=== PATIENT | female | born 1985 | race American Indian/Alaskan Native ===

== ENCOUNTER 2021-12-12 14:21 | Inpatient (IN) | payer SELFPAY ==
[2021-12-12] MEDS ORDERED: MAGNESIUM SULFATE 2 GM/50 ML BAG IV ONE (15:20)
[2021-12-12] MEDS ORDERED: ALBUTEROL 2.5 MG/3 ML NEBU IH ONE (15:20)
[2021-12-12] MEDS ORDERED: IPRATROPIUM 0.02% NEBU 2.5 ML IH ONE (15:20)
[2021-12-12] MEDS ORDERED: hydrALAZINE 20 MG/1 ML INJ IV STA (15:22)
--- NOTE | 2021-12-12 15:22 | Emergency Department Report ---
ED General Adult HPI - General Chief complaint: Dyspnea/Respdistress Stated complaint: SOB PUI?: Yes Time Seen by Provider: 12/12/21 15:16 Source: patient, EMS ( EMS documentation not available at time of chart dictation ), RN notes reviewed Mode of arrival: Stretcher Limitations: No Limitations, Physical Limitation - History of Present Illness Initial comments: The patient was evaluated in the emergency department for symptoms described in the history of present illness. He/she was evaluated in the context of the global COVID-19 pandemic, which necessitated consideration that the patient might be at risk for infection with the virus that causes COVID-19. Institutional protocols and algorithms that pertain to the evaluation of patients at risk for COVID-19 are in a state of rapid change based on information released by regulatory bodies including the CDC and federal and state organizations. These policies and algorithms were followed during the patient's care in the emergency department. Please note that these policies, procedures and recommendations changed on a rapid basis. This is a 36-year-old female who is a tobacco and marijuana smoker, with a history of hypertension, bronchitis and COPD, who is not on home oxygen, who presents to the department today with a complaint of cough, wheezing, shortness of breath, legs and fatigue. Has never been intubated. Admitted to [facility] 3 weeks ago for similar symptoms. No loss of taste or smell. Asking to eat. As per nursing documentation, received magnesium, Decadron, epinephrine, and 3 breathing treatments. Denies the possibility of . The patient reports that she is not COVID-19 vaccinated. The patient reports loss of taste and smell for 2 to 3 days -: Gradual, days(s) Consistency: constant Improves with: medication, rest Worsens with: movement - Related Data Allergies Allergy/AdvReac Type Severity Reaction Status Date / Time Sulfa (Sulfonamide Allergy Anaphylaxis Verified 12/12/21 14:37 Antibiotics) ED Review of Systems ROS: Stated complaint: SOB Other details as noted in HPI Constitutional: malaise, weakness. denies: fever ENT: congestion Respiratory: cough, shortness of breath, SOB with exertion, SOB at rest, wheezing Cardiovascular: denies: syncope Gastrointestinal: denies: abdominal pain Musculoskeletal: back pain, arthralgia, myalgia Neurological: weakness Psychiatric: anxiety ED Past Medical Hx - Past Medical History Previous Medical History?: Yes Hx COPD: Yes - Social History Smoking Status: Current Every Day Smoker Substance Use Type: Alcohol, Marijuana ED Physical Exam - General Limitations: Physical Limitation General appearance: alert, anxious, in distress - Head Head exam: Present: atraumatic, normocephalic - Eye Eye exam: Present: normal appearance, EOMI. Absent: nystagmus - ENT ENT exam: Present: normal exam, normal orophraynx, mucous membranes moist, normal external ear exam - Neck Neck exam: Present: normal inspection, full ROM. Absent: tenderness, meningismus - Respiratory Respiratory exam: Present: respiratory distress, wheezes, rhonchi, accessory muscle use. Absent: stridor - Cardiovascular Cardiovascular Exam: Present: normal rhythm, tachycardia, normal heart sounds. Absent: bradycardia, irregular rhythm, systolic murmur, diastolic murmur, rubs, gallop - GI/Abdominal GI/Abdominal exam: Present: soft. Absent: distended, tenderness, guarding, rebound, rigid, pulsatile mass - Extremities Exam Extremities exam: Present: normal inspection, full ROM, other (2+ pulses noted in the bilateral upper and lower extremities. There is no palpable cord. negative Homans sign. Muscular compartments are soft. The pelvis is stable.). Absent: calf tenderness - Back Exam Back exam: Present: normal inspection. Absent: tenderness, CVA tenderness (R), CVA tenderness (L), paraspinal tenderness, vertebral tenderness - Neurological Exam Neurological exam: Present: alert, other (There is no facial droop. The tongue is midline. EOMI. 5/5 strength in 4 extremities). Absent: motor sensory deficit - Psychiatric Psychiatric exam: Present: anxious - Skin Skin exam: Present: warm, dry, intact, normal color. Absent: rash ED Course Vital Signs 12/12/21 12/12/21 12/12/21 14:22 14:42 15:20 Temperature 98.2 F Pulse Rate 114 H 111 H Pulse Rate [ Bilateral] Respiratory 22 27 H Rate Respiratory Rate [Bilateral ] Blood Pressure 185/115 Blood Pressure 180/100 186/125 [Left] O2 Sat by Pulse 97 94 Oximetry 12/12/21 12/12/21 15:27 16:10 Temperature 98.3 F Pulse Rate 101 H Pulse Rate [ 108 H Bilateral] Respiratory 22 Rate Respiratory 24 Rate [Bilateral ] Blood Pressure Blood Pressure 167/118 [Left] O2 Sat by Pulse 94 100 Oximetry - Reevaluation(s) Reevaluation #1: 12/12/21 16:51 Differential diagnosis, include but not limited to: Bronchitis, COVID-19, asthma, reactive airways disease, hypertensive urgency Assessment and plan: 36-year-old female with acute hypoxic respiratory failure, known history of COPD, not on home oxygen, desaturating to 83% on room air, with cough, wheezing, rhonchi, shortness of breath, suspicious for COPD/bronchitis. Denies loss of taste and smell. Protecting airway not stridulous. Hemodynamically stable. Start albuterol, and Atrovent, additional magnesium will be ordered. Patient has already received steroids, and epinephrine. X-ray chest pending, EKG appreciated, laboratory studies pending. Anticipate admission to the medical service for acute hypoxic respiratory failure, likely secondary to reactive airway disease/bronchitis/COPD 12/12/21 17:52 Patient reassessed. Laboratory studies reviewed and appreciated. Chest x-ray reviewed and appreciated. Given acute hypoxic respiratory failure, bilateral pneumonia, high suspicion for COVID, admit for supportive care. Patient is agreeable to admission hospitalization. Leukocytosis is appreciated. Uncertain if stress reaction, secondary to steroids, or secondary to COVID and/or bacterial infection. Given propensity for COVID patients to develop acute respiratory distress sy ndrome, we will withhold 30 cc/kg bolus of IV fluids, in spite of patient being positive for systemic inflammatory response syndrome, without evidence of septic shock. Awaiting callback from hospital physician to arrange admission 12/12/21 18:16 Dr. Chan to admit patient to the medical service. ED Medical Decision Making - Lab Data Result diagrams: 12/12/21 15:55 12/12/21 15:55 Vital Signs 12/12/21 12/12/21 12/12/21 14:22 14:42 15:20 Temperature 98.2 F Pulse Rate 114 H 111 H Respiratory 22 27 H Rate Blood Pressure 185/115 Blood Pressure 180/100 186/125 [Left] O2 Sat by Pulse 97 94 Oximetry 12/12/21 16:10 Temperature 98.3 F Pulse Rate 101 H Respiratory 22 Rate Blood Pressure Blood Pressure 167/118 [Left] O2 Sat by Pulse 100 Oximetry Lab Results 12/12/21 12/12/21 12/12/21 Range/Units 15:55 15:55 15:55 WBC 22.3 H (4.5-11.0) K/mm3 RBC 4.95 (3.65-5.03) M/mm3 Hgb 13.5 (10.1-14.3) gm/dl Hct 42.2 (30.3-42.9) % MCV 85 (79-97) fl MCH 27 L (28-32) pg MCHC 32 (30-34) % RDW 15.3 H (13.2-15.2) % Plt Count 364 (140-440) K/mm3 Seg Neutrophils % Switch Coupler PT (12.2-14.9) Sec. INR (0.87-1.13) APTT (24.2-36.6) Sec. Sodium 139 (137-145) mmol/L Potassium 3.6 (3.6-5.0) mmol/L Chloride 99.5 (98-107) mmol/L Carbon Dioxide 25 (22-30) mmol/L Anion Gap 18 mmol/L BUN 9 (7-17) mg/dL Creatinine 0.6 (0.6-1.2) mg/dL Estimated GFR > 60 ml/min BUN/Creatinine Ratio 15 % Glucose 105 H (65-100) mg/dL Lactic Acid 1.40 (0.7-2.0) mmol/L Calcium 9.1 (8.4-10.2) mg/dL Magnesium 2.30 (1.7-2.3) mg/dL Total Bilirubin 0.40 (0.1-1.2) mg/dL AST 18 (5-40) units/L ALT 14 (7-56) units/L Alkaline Phosphatase 76 (35-129) units/L Troponin T < 0.010 (0.00-0.029) ng/mL Total Protein 7.4 (6.3-8.2) g/dL Albumin 4.0 (3.9-5) g/dL Albumin/Globulin Ratio 1.2 % HCG, Quant (0-4) mIU/mL 12/12/21 12/12/21 Range/Units 15:55 15:55 WBC (4.5-11.0) K/mm3 RBC (3.65-5.03) M/mm3 Hgb (10.1-14.3) gm/dl Hct (30.3-42.9) % MCV (79-97) fl MCH (28-32) pg MCHC (30-34) % RDW (13.2-15.2) % Plt Count (140-440) K/mm3 Seg Neutrophils % PT 14.7 (12.2-14.9) Sec. INR 1.03 (0.87-1.13) APTT 32.6 (24.2-36.6) Sec. Sodium (137-145) mmol/L Potassium (3.6-5.0) mmol/L Chloride (98-107) mmol/L Carbon Dioxide (22-30) mmol/L Anion Gap mmol/L BUN (7-17) mg/dL Creatinine (0.6-1.2) mg/dL Estimated GFR ml/min BUN/Creatinine Ratio % Glucose (65-100) mg/dL Lactic Acid (0.7-2.0) mmol/L Calcium (8.4-10.2) mg/dL Magnesium (1.7-2.3) mg/dL Total Bilirubin (0.1-1.2) mg/dL AST (5-40) units/L ALT (7-56) units/L Alkaline Phosphatase (35-129) units/L Troponin T (0.00-0.029) ng/mL Total Protein (6.3-8.2) g/dL Albumin (3.9-5) g/dL Albumin/Globulin Ratio % HCG, Quant < 2 (0-4) mIU/mL - EKG Data -: EKG Interpreted by Hi EKG shows normal: sinus rhythm Rate: tachycardia - EKG Data When compared to previous EKG there are: previous EKG unavailable 12/12/21 16:47 The EKG is interpreted at 15: 59 Sinus rhythm, tachycardia, rate 106/min Normal axis, normal P wave axis, atrial enlargement, nonspecific T wave abnormalities, QTC 4 3 7 ms. This is an abnormal EKG. This is not a STEMI - Radiology Data Radiology results: pending, report reviewed, image reviewed HEST 1 VIEW INDICATION / CLINICAL INFORMATION: Dyspnea. COMPARISON: CT chest FINDINGS: SUPPORT DEVICES: None. HEART / MEDIASTINUM: Normal cardiac silhouette LUNGS / PLEURA: Bibasilar pulmonary opacities are present. Upper lung camarena remain grossly clear. No large pleural effusion. No pneumothorax. ADDITIONAL FINDINGS: No significant additional findings. IMPRESSION: 1. Bibasilar pulmonary opacities. Differential diagnosis includes bibasilar pneumonia versus interstitial pulmonary edema. Clinical correlation is recommended. Signer Name: Dayan Gaston MD Signed: 12/12/2021 4:32 PM Workstation Name: [id number] Critical Care Time: Yes Critical care time in (mins) excluding proc time.: 35 Critical care attestation.: If time is entered above; I have spent that time in minutes in the direct care of this critically ill patient, excluding procedure time. ED Disposition Clinical Impression: Hypertensive urgency, Acute respiratory failure with hypoxia, Suspected COVID- 19 virus infection, Bilateral pulmonary infiltrates on CXR Disposition: ADMITTED INPATIENT Is pt being admited?: Yes Does the pt Need Aspirin: No Condition: Fair Instructions: Chronic Obstructive Pulmonary Disease (ED)
[2021-12-12 16:49] LABS: Hematocrit 42.2 % (30.3-42.9); Hemoglobin 13.5 gm/dl (10.1-14.3); Mean Corpuscular HGB Conc 32 % (30-34); Mean Corpuscular Volume 85 fl (79-97); Platelet Count 364 K/mm3 (140-440); Red Blood Count 4.95 M/mm3 (3.65-5.03); Red Cell Distribution Width 15.3 % (13.2-15.2)
[2021-12-12 17:00] LABS: INR 1.03 (0.87-1.13); Partial Thromboplastin Time 32.6 Sec. (24.2-36.6)
[2021-12-12 17:01] LABS: Alanine Aminotransferase 14 units/L (7-56); BUN/Creatinine Ratio 15; Blood Urea Nitrogen 9 mg/dL (7-17); Calcium 9.1 mg/dL (8.4-10.2); Hemolysis Index 3
--- NOTE | 2021-12-12 17:36 | XRay Report ---
CHEST 1 VIEW INDICATION / CLINICAL INFORMATION: Dyspnea. COMPARISON: CT chest 06/27/2021 FINDINGS: SUPPORT DEVICES: None. HEART / MEDIASTINUM: Normal cardiac silhouette LUNGS / PLEURA: Bibasilar pulmonary opacities are present. Upper lung camarena remain grossly clear. No large pleural effusion. No pneumothorax. ADDITIONAL FINDINGS: No significant additional findings. IMPRESSION: 1. Bibasilar pulmonary opacities. Differential diagnosis includes bibasilar pneumonia versus intersti tial pulmonary edema. Clinical correlation is recommended. Signer Name: Dayan Gaston MD Signed: 12/12/2021 5:32 PM Workstation Name: [id number]
[2021-12-12] MEDS ORDERED: cefTRIAXone/NS 1 GM/50 ML 1 GM/50 ML BAG IV ONE (17:49)
[2021-12-12] MEDS ORDERED: AZITHROMYCIN/NS 500 MG/250 ML 500 MG/250 ML BAG IV ONE (17:49)
--- NOTE | 2021-12-12 18:08 | History and Physical Report ---
History of Present Illness Chief complaint: It is hard to breathe History of present illness: 36 YO Female with Nicotine Dependence, HTN, Bronchitis presents ED for evaluation. Patient reports "it is hard to breathe". Patient states that she has cramps and generalized weakness, fatigue, malaise, loss of sense of smell, loss of sense of taste, diminished exercise tolerance over the past 1 week with worsening symptoms over the past 3 days. EMS was notified and upon arrival the patient was found to be in distress and subsequent transported to [facility] for further care and evaluation of the aforementioned symptoms. The patient was seen and evaluated in the emergency department. All lab and imaging studies reviewed. The patient was found to have a pulse oximetry of 87% on room air with exertion which is consistent with acute hypoxemic respiratory failure. Chest x-ray reveals bilateral pneumonia complicated by sepsis. Patient admitted to medical floor and initiated on sepsis protocol, pneumonia protocol as well as coronavirus protocol. Patient denies fever, chills, chest pain, palpitation, skin rash, recent ill contacts, or known exposure to COVID-19. Patient is unvaccinated against COVID-19. No prior admission for review. No medication listed at time of admission for reconciliation. Advanced care planning conducted in ED. Past History Past Medical History: hypertension, other (See HPI) Past Surgical History: No surgical history, Other (Reviewed) Social history: single, smoking. denies: alcohol abuse Family history: hypertension Medications and Allergies Allergies Allergy/AdvReac Type Severity Reaction Status Date / Time Sulfa (Sulfonamide Allergy Anaphylaxis Verified 12/12/21 14:37 Antibiotics) Active Meds: Active Medications Azithromycin (Zithromax/Ns) 500 mg in 250 mls @ 250 mls/hr IV ONCE ONE; Protocol Stop: 12/12/21 18:48 Ceftriaxone Sodium (Rocephin/Ns 1 Gm/50 Ml) 1 gm in 50 mls @ 100 mls/hr IV ONCE ONE; Protocol Stop: 12/12/21 18:18 Review of Systems Constitutional: weakness, malaise, lethargy, no weight loss, no weight gain, no fever, no chills Ears, nose, mouth and throat: other (Loss of sense of smell, loss of sense of taste), no ear pain, no ear discharge, no tinnitis, no decreased hearing Breasts: no change in shape, no swelling, no mass Cardiovascular: no chest pain, no orthopnea, no palpitations Respiratory: shortness of breath, no cough Gastrointestinal: no abdominal pain, no nausea, no vomiting, no diarrhea Genitourinary Female: no pelvic pain, no flank pain, no dysuria, no urinary frequency Rectal: no pain, no incontinence, no bleeding Musculoskeletal: no neck stiffness, no neck pain, no shooting arm pain Integumentary: no rash, no pruritis, no redness, no sores, no wounds Neurological: no head injury, no transient paralysis, no paralysis, no weakness, no parathesias, no numbness Psychiatric: no change in sleep habits, no sleep disturbances, no hypersomnia, no change in libido, no disorientation, no hallucinations Endocrine: no cold intolerance, no polyphagia, no polydipsia, no polyuria, no nocturia Hematologic/Lymphatic: no easy bruising, no easy bleeding Allergic/Immunologic: no urticaria, no wheezing Exam - Constitutional Vitals: Temp Pulse Resp BP Pulse Ox 98.3 F 101 H 22 167/118 100 12/12/21 16:10 12/12/21 16:10 12/12/21 16:10 12/12/21 16:10 12/12/21 16:10 General appearance: Present: mild distress - EENT Eyes: Present: PERRL ENT: hearing intact, clear oral mucosa - Neck Neck: Present: supple, normal ROM - Respiratory Respiratory effort: labored, accessory muscle use Respiratory: bilateral: diminished, rhonchi - Cardiovascular Rhythm: other (Tachycardia) Heart Sounds: Present: S1 & S2. Absent: rub, click - Extremities Extremities: pulses symmetrical, No edema Peripheral Pulses: abnormal (Capillary refill greater than 3.5 seconds) - Abdominal General gastrointestinal: Present: soft, non-tender, non-distended, normal bowel sounds Female genitourinary: Present: normal - Integumentary Integumentary: Present: clear, warm, dry - Musculoskeletal Musculoskeletal: gait normal, strength equal bilaterally - Psychiatric Psychiatric: appropriate mood/affect, intact judgment & insight - Neurologic Neurologic: CNII-XII intact, moves all extremities HEART Score - HEART Score Troponin: Troponin T < 0.010 ng/mL (0.00-0.029) 12/12/21 15:55 Results - Labs CBC & Chem 7: 12/12/21 15:55 12/12/21 15:55 Labs: Abnormal lab results 12/12/21 12/12/21 Range/Units 15:55 15:55 WBC 22.3 H (4.5-11.0) K/mm3 MCH 27 L (28-32) pg RDW 15.3 H (13.2-15.2) % Glucose 105 H (65-100) mg/dL Assessment and Plan - Patient Problems (1) Sepsis Current Visit: Yes Status: Acute Qualifiers: Acute respiratory failure type: with hypoxia Plan to address problem: Sepsis protocol: Chest x-ray, CBC, CMP, blood culture, IV fluid resuscitation therapy, IV antibiotic therapy, maintain mean arterial pressure greater than or equal to 65, serial lactic acid level, (2) Pneumonia Current Visit: Yes Status: Acute Qualifiers: Laterality: bilateral Plan to address problem: Pneumonia protocol: Chest x-ray, CBC, CMP, supplemental oxygen, pulse oximetry, IV antibiotic therapy, pulmonary toilet. (3) Suspected COVID-19 virus infection Current Visit: No Status: Acute Plan to address problem: Coronavirus protocol: Supplemental oxygen, pulse oximetry, nebulizer therapy, vitamin C therapy, vitamin D therapy, zinc therapy, IV antibiotic therapy, IV steroid therapy, prophylactic anticoagulation. (4) Accelerated hypertension Current Visit: Yes Status: Acute Plan to address problem: Monitor blood pressure every shift, continue medical management. (5) Acute respiratory failure with hypoxia Current Visit: No Status: Acute Plan to address problem: Chest x-ray, supplemental oxygen, pulse oximetry, noninvasive positive pressure ventilation as clinically indicated. If patient is unable to maintain pulse oximetry will initiate high flow supplemental oxygen therapy as clinically indicated. (6) DVT prophylaxis Current Visit: Yes Status: Acute Plan to address problem: SCDs bilateral lower extremities while in bed, prophylactic anticoagulation (7) Advance care planning Current Visit: Yes Status: Acute Plan to address problem: Disease education done, care plan discussed, diagnoses discussed, prognosis discussed, patient is full code. Patient knowledges understanding and agreement with care plan, +30 minutes. (8) Preventative health care Current Visit: Yes Status: Acute Plan to address problem: Patient counseled regarding risk factor reduction, COVID-19 vaccination, outpatient follow-up with primary care physician for all age and risk factor appropriate screening test. +30 minutes.
[2021-12-12] MEDS ORDERED: oxyCODONE /ACETAMINOPHEN 5-325MG TAB PO PRN (18:09)
[2021-12-12] MEDS ORDERED: SODIUM CHLORIDE 0.9% 1000 ML IV SOLN IV ONE (18:09)
[2021-12-12] MEDS ORDERED: HYDROmorphone 0.5 MG/0.5 ML INJ IV PRN (18:09)
[2021-12-12] MEDS ORDERED: ONDANSETRON 4 MG/2 ML INJ IV PRN (18:09)
[2021-12-12] MEDS ORDERED: AZITHROMYCIN/NS 500 MG/250 ML 500 MG/250 ML BAG IV SCH (19:00)
[2021-12-12 19:31] LABS: Band Neutrophils # (Manual) 0.2 K/mm3; Basophils % (Manual) 0 % (0.0-1.8); Monocytes % (Manual) 0 % (0.0-7.3); Platelet Estimate Consistent w Auto; Total Cells Counted 100
[2021-12-12] MEDS: cefTRIAXone/NS 2 GM/100 ML 2 GM/100 ML BAG IV SCH (19:41)
[2021-12-12] MEDS: ALBUTEROL 2.5 MG/3 ML NEBU IH PRN (20:47)
[2021-12-12] MEDS: methylPREDNISolone Sod Succinate 40 MG/1 ML INJ IV SCH (22:00)
[2021-12-12] MEDS: HEPARIN 5,000 UNIT/1 ML VIAL SUB-Q SCH (22:00)
[2021-12-12] MEDS: ASCORBIC ACID 500 MG TAB PO SCH (22:00)
[2021-12-12] MEDS ORDERED: ZINC SULFATE 220 MG CAP PO SCH (22:00)
[2021-12-12] MEDS: ZINC SULFATE 220 MG CAP PO SCH (22:00)
[2021-12-13] MEDS: hydrALAZINE 20 MG/1 ML INJ IV PRN ×2 (00:51→22:12)
[2021-12-13] MEDS: ALBUTEROL 2.5 MG/3 ML NEBU IH PRN ×2 (03:00→08:29)
[2021-12-13] MEDS: methylPREDNISolone Sod Succinate 40 MG/1 ML INJ IV SCH ×3 (06:01→21:55)
[2021-12-13 08:39] LABS: Blood Urea Nitrogen 8 mg/dL (7-17); Calcium 9.7 mg/dL (8.4-10.2); Hemolysis Index 21
[2021-12-13 08:47] LABS: Basophils % (Auto) 0.6 % (0.0-1.8); Eosinophils % (Auto) 0.3 % (0.0-4.3); Hematocrit 40.5 % (30.3-42.9); Hemoglobin 13.5 gm/dl (10.1-14.3); Lymphocytes # (Auto) 1.2 K/mm3 (1.2-5.4); Lymphocytes % (Auto) 5.9 % (13.4-35.0); Mean Corpuscular HGB Conc 33 % (30-34); Mean Corpuscular Volume 84 fl (79-97); Mean Platelet Volume 9.3 fl (6-12); Monocytes % (Auto) 4.2 % (0.0-7.3); Platelet Count 363 K/mm3 (140-440); Red Blood Count 4.81 M/mm3 (3.65-5.03); Red Cell Distribution Width 15.5 % (13.2-15.2)
[2021-12-13 08:48] LABS: Basophils # (Auto) 0.1 K/mm3 (0.0-0.1); Eosinophils # (Auto) 0.1 K/mm3 (0.0-0.4); Monocytes # (Auto) 0.8 K/mm3 (0.0-0.8)
[2021-12-13 08:51] LABS: BUN/Creatinine Ratio 11
--- NOTE | 2021-12-13 09:08 | Electrocardiograph Report ---
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
[2021-12-13] MEDS ORDERED: CALCIUM GLUCONATE 1,000 MG in SODIUM CHLORIDE 0.9% 100 ML IV ONE (09:56)
--- NOTE | 2021-12-13 09:58 | Progress Note ---
Assessment and Plan Assessment and plan: -- Sepsis; present on admission Sepsis protocol: Chest x-ray, CBC, CMP, blood culture, IV fluid resuscitation therapy, IV antibiotic therapy, maintain mean arterial pressure greater than or equal to 65, serial lactic acid level, --Pneumonia bilateral; community-acquired; POA Pneumonia protocol: Chest x-ray, CBC, CMP, supplemental oxygen, pulse oximetry, IV antibiotic therapy, pulmonary toilet. Follow cultures --Suspected COVID-19 virus infection/PUI Coronavirus protocol: Supplemental oxygen, pulse oximetry, nebulizer therapy, vitamin C therapy, vitamin D therapy, zinc therapy, IV antibiotic therapy, IV steroid therapy, prophylactic anticoagulation. --Accelerated hypertension Monitor blood pressure every shift, continue current antihypertensives As needed medications -- Acute respiratory failure with hypoxia/POA Chest x-ray, supplemental oxygen, pulse oximetry, noninvasive positive pressure ventilation as needed If patient is unable to maintain pulse oximetry will initiate high flow supplemental oxygen therapy Slowly wean as tolerated, home O2 evaluation prior to discharge --Full CODE STATUS; --DVT prophylaxis SCDs bilateral lower extremities while in bed, prophylactic anticoagulation --Advance care planning Disease education done, care plan discussed, diagnoses discussed, prognosis discussed, patient is full code. Patient knowledges understanding and agreement with care plan, +30 minutes. --Preventative health care Patient counseled regarding risk factor reduction, COVID-19 vaccination, outpatient follow-up with primary care physician for all age and risk factor appropriate screening test. +30 minutes. Disposition; follow clinically, follow consults evaluation recommendation Discharge when stable History Interval history: I have seen and examined the patient at the bedside this morning Patient's chart and medications reviewed Patient is in mild shortness of breath Complains of generalized weakness Vital signs reviewed Hospitalist Physical - Constitutional Vitals: Temp Pulse Resp BP Pulse Ox 97.6 F 120 H 24 157/96 98 12/13/21 04:24 12/13/21 08:29 12/13/21 08:29 12/13/21 04:24 12/13/21 08:29 General appearance: Present: mild distress, well-nourished, other - EENT Eyes: Present: PERRL (Mild shortness of breath), EOM intact - Neck Neck: Present: supple, normal ROM - Respiratory Respiratory effort: normal Respiratory: bilateral: diminished, rhonchi, negative: rales, wheezing - Cardiovascular Rhythm: regular Heart Sounds: Present: S1 & S2 - Extremities Extremities: no ischemia, No edema - Abdominal General gastrointestinal: soft, non-tender, non-distended, normal bowel sounds - Integumentary Integumentary: Present: clear, warm - Psychiatric Psychiatric: appropriate mood/affect, cooperative - Neurologic Neurologic: CNII-XII intact, moves all extremities HEART Score - HEART Score Troponin: Troponin T < 0.010 ng/mL (0.00-0.029) 12/12/21 15:55 Results - Labs CBC & Chem 7: 12/13/21 06:37 12/13/21 06:37 Labs: Laboratory Last Values WBC 19.6 K/mm3 (4.5-11.0) H 12/13/21 06:37 RBC 4.81 M/mm3 (3.65-5.03) 12/13/21 06:37 Hgb 13.5 gm/dl (10.1-14.3) 12/13/21 06:37 Hct 40.5 % (30.3-42.9) 12/13/21 06:37 MCV 84 fl (79-97) 12/13/21 06:37 MCH 28 pg (28-32) 12/13/21 06:37 MCHC 33 % (30-34) 12/13/21 06:37 RDW 15.5 % (13.2-15.2) H 12/13/21 06:37 Plt Count 363 K/mm3 (140-440) 12/13/21 06:37 Lymph % (Auto) 5.9 % (13.4-35.0) L 12/13/21 06:37 [place] % (Auto) 4.2 % (0.0-7.3) 12/13/21 06:37 Eos % (Auto) 0.3 % (0.0-4.3) 12/13/21 06:37 Baso % (Auto) 0.6 % (0.0-1.8) 12/13/21 06:37 Lymph # (Auto) 1.2 K/mm3 (1.2-5.4) 12/13/21 06:37 [place] # (Auto) 0.8 K/mm3 (0.0-0.8) 12/13/21 06:37 Eos # (Auto) 0.1 K/mm3 (0.0-0.4) 12/13/21 06:37 Baso # (Auto) 0.1 K/mm3 (0.0-0.1) 12/13/21 06:37 Add Manual Diff Complete 12/12/21 15:55 Total Counted 100 12/12/21 15:55 Seg Neutrophils % 89.0 % (40.0-70.0) H 12/13/21 06:37 Seg Neuts % (Manual) 96.0 % (40.0-70.0) H 12/12/21 15:55 Band Neutrophils % 1.0 % 12/12/21 15:55 Lymphocytes % (Manual) 2.0 % (13.4-35.0) L 12/12/21 15:55 Reactive Lymphs % (Man) 0 % 12/12/21 15:55 Monocytes % (Manual) 0 % (0.0-7.3) 12/12/21 15:55 Eosinophils % (Manual) 1.0 % (0.0-4.3) 12/12/21 15:55 Basophils % (Manual) 0 % (0.0-1.8) 12/12/21 15:55 Metamyelocytes % 0 % 12/12/21 15:55 Myelocytes % 0 % 12/12/21 15:55 Promyelocytes % 0 % 12/12/21 15:55 Blast Cells % 0 % 12/12/21 15:55 Nucleated RBC % Not Reportable 12/12/21 15:55 Seg Neutrophils # 17.4 K/mm3 (1.8-7.7) H 12/13/21 06:37 Seg Neutrophils # Man 21.4 K/mm3 (1.8-7.7) H 12/12/21 15:55 Band Neutrophils # 0.2 K/mm3 12/12/21 15:55 Lymphocytes # (Manual) 0.4 K/mm3 (1.2-5.4) L 12/12/21 15:55 Abs React Lymphs (Man) 0.0 K/mm3 12/12/21 15:55 Monocytes # (Manual) 0.0 K/mm3 (0.0-0.8) 12/12/21 15:55 Eosinophils # (Manual) 0.2 K/mm3 (0.0-0.4) 12/12/21 15:55 Basophils # (Manual) 0.0 K/mm3 (0.0-0.1) 12/12/21 15:55 Metamyelocytes # 0.0 K/mm3 12/12/21 15:55 Myelocytes # 0.0 K/mm3 12/12/21 15:55 Promyelocytes # 0.0 K/mm3 12/12/21 15:55 Blast Cells # 0.0 K/mm3 12/12/21 15:55 WBC Morphology Not Reportable 12/12/21 15:55 Hypersegmented Neuts Not Reportable 12/12/21 15:55 Hyposegmented Neuts Not Reportable 12/12/21 15:55 Hypogranular Neuts Not Reportable 12/12/21 15:55 Smudge Cells Not Reportable 12/12/21 15:55 Toxic Granulation Not Reportable 12/12/21 15:55 Toxic Vacuolation Not Reportable 12/12/21 15:55 Dohle Bodies Not Reportable 12/12/21 15:55 Pelger-Huet Anomaly Not Reportable 12/12/21 15:55 Clare Rods Not Reportable 12/12/21 15:55 Platelet Estimate Consistent w auto 12/12/21 15:55 Clumped Platelets Not Reportable 12/12/21 15:55 Plt Clumps, EDTA Not Reportable 12/12/21 15:55 Large Platelets Not Reportable 12/12/21 15:55 Giant Platelets Not Reportable 12/12/21 15:55 Platelet Satelliting Not Reportable 12/12/21 15:55 Plt Morphology Comment Not Reportable 12/12/21 15:55 RBC Morphology Not Reportable 12/12/21 15:55 Dimorphic RBCs Not Reportable 12/12/21 15:55 Polychromasia Not Reportable 12/12/21 15:55 Hypochromasia Not Reportable 12/12/21 15:55 Poikilocytosis Not Reportable 12/12/21 15:55 Anisocytosis Not Reportable 12/12/21 15:55 Microcytosis Not Reportable 12/12/21 15:55 Macrocytosis Not Reportable 12/12/21 15:55 Spherocytes Not Reportable 12/12/21 15:55 Pappenheimer Bodies Not Reportable 12/12/21 15:55 Sickle Cells Not Reportable 12/12/21 15:55 Target Cells Not Reportable 12/12/21 15:55 Tear Drop Cells Not Reportable 12/12/21 15:55 Ovalocytes Not Reportable 12/12/21 15:55 Helmet Cells Not Reportable 12/12/21 15:55 [place] Bodies Not Reportable 12/12/21 15:55 [place] Rings Not Reportable 12/12/21 15:55 Ricardo Cells Not Reportable 12/12/21 15:55 Bite Cells Not Reportable 12/12/21 15:55 Crenated Cell Not Reportable 12/12/21 15:55 Elliptocytes Not Reportable 12/12/21 15:55 Acanthocytes (Spur) Not Reportable 12/12/21 15:55 Rouleaux Not Reportable 12/12/21 15:55 Hemoglobin C Crystals Not Reportable 12/12/21 15:55 Schistocytes Not Reportable 12/12/21 15:55 Malaria parasites Not Reportable 12/12/21 15:55 Wojciech Bodies Not Reportable 12/12/21 15:55 Hem Pathologist Commnt No 12/12/21 15:55 PT 14.7 Sec. (12.2-14.9) 12/12/21 15:55 INR 1.03 (0.87-1.13) 12/12/21 15:55 APTT 32.6 Sec. (24.2-36.6) 12/12/21 15:55 Sodium 139 mmol/L (137-145) 12/13/21 06:37 Potassium 5.5 mmol/L (3.6-5.0) H D 12/13/21 06:37 Chloride 102.1 mmol/L (98-107) 12/13/21 06:37 Carbon Dioxide 20 mmol/L (22-30) L 12/13/21 06:37 Anion Gap 22 mmol/L 12/13/21 06:37 BUN 8 mg/dL (7-17) 12/13/21 06:37 Creatinine 0.7 mg/dL (0.6-1.2) 12/13/21 06:37 Estimated GFR > 60 ml/min 12/13/21 06:37 BUN/Creatinine Ratio 11 % 12/13/21 06:37 Glucose 84 mg/dL (65-100) 12/13/21 06:37 Lactic Acid 1.10 mmol/L (0.7-2.0) 12/12/21 23:30 Calcium 9.7 mg/dL (8.4-10.2) 12/13/21 06:37 Magnesium 2.30 mg/dL (1.7-2.3) 12/12/21 15:55 Total Bilirubin 0.40 mg/dL (0.1-1.2) 12/12/21 15:55 AST 18 units/L (5-40) 12/12/21 15:55 ALT 14 units/L (7-56) 12/12/21 15:55 Alkaline Phosphatase 76 units/L (35-129) 12/12/21 15:55 Troponin T < 0.010 ng/mL (0.00-0.029) 12/12/21 15:55 Total Protein 7.4 g/dL (6.3-8.2) 12/12/21 15:55 Albumin 4.0 g/dL (3.9-5) 12/12/21 15:55 Albumin/Globulin Ratio 1.2 % 12/12/21 15:55 HCG, Quant < 2 mIU/mL (0-4) 12/12/21 15:55 Blood Type A POSITIVE 12/12/21 18:41 Antibody Screen Negative 12/12/21 18:41 Microbiology: Microbiology 12/12/21 18:41 Peripheral/Venous Blood Culture - Preliminary Culture in Progress 12/12/21 18:41 Peripheral/Venous Blood Culture - Preliminary Culture in Progress Active Medications - Current Medications Current Medications: Generic Name Dose Route Start Last Admin Trade Name [place] PRN Reason Stop Dose Admin Acetaminophen 650 mg 12/12/21 18:09 Acetaminophen 325 Mg Tab PO Q4H PRN Pain MILD(1-3)/Fever >100.5/BLACK Albuterol 2.5 mg 12/12/21 18:09 12/13/21 08:29 Albuterol 2.5 Mg/3 Ml Nebu IH 2.5 mg Q4HRT PRN Administration Shortness Of Breath Ascorbic Acid 500 mg 12/12/21 22:00 12/12/21 22:00 Ascorbic Acid 500 Mg Tab PO 500 mg BID TANK Administration Azithromycin 500 mg 12/13/21 18:00 Azithromycin 250 Mg Tab PO 12/16/21 18:59 QPM TANK Cholecalciferol 1,000 unit 08/15/22 10:00 Cholecalciferol (Vit D3) 1000 Unit (25 Mcg) Tab PO QDAY [facility] Heparin Sodium (Porcine) 5,000 unit 12/12/21 22:00 12/12/21 22:00 Heparin 5,000 Unit/1 Ml Vial SUB-Q 5,000 unit Q12HR TANK Administration Hydralazine HCl 10 mg 12/13/21 00:38 12/13/21 00:51 Hydralazine 20 Mg/1 Ml Inj IV 10 mg Q6HR PRN Administration Elevated B/P Hydromorphone HCl 0.5 mg 12/12/21 18:09 Hydromorphone 0.5 Mg/0.5 Ml Inj IV Q23H PRN Pain , Severe (7-10) Ceftriaxone Sodium 2 gm in 100 mls @ 200 mls/hr 12/12/21 19:00 12/12/21 19:41 Rocephin/Ns 2 Gm/100 Ml IV Not Given Q24H [facility] Protocol Calcium Gluconate 1,000 mg/ 110 mls @ 660 mls/hr 12/13/21 09:56 Sodium Chloride IV 12/13/21 10:05 ONCE ONE Methylprednisolone Sodium Succinate 40 mg 12/12/21 22:00 12/13/21 06:01 Methylprednisolone Sod Succinate 40 Mg/1 Ml Inj IV 40 mg Q8HR TANK Administration Ondansetron HCl 4 mg 12/12/21 18:09 Ondansetron 4 Mg/2 Ml Inj IV Q8H PRN Nausea And Vomiting Oxycodone/Acetaminophen 1 tab 12/12/21 18:09 Oxycodone /Acetaminophen 5-325mg Tab PO Q16H PRN Pain, Moderate (4-6) Sodium Chloride 10 ml 12/12/21 22:00 12/12/21 22:17 Sodium Chloride 0.9% 10 Ml Flush Syringe IV 10 ml BID TANK Administration Sodium Chloride 10 ml 12/12/21 18:09 Sodium Chloride 0.9% 10 Ml Flush Syringe IV PRN PRN LINE FLUSH Zinc Sulfate 220 mg 12/12/21 22:00 12/12/21 22:00 Zinc Sulfate 220 Mg Cap PO 220 mg QDAY TANK Administration
[2021-12-13] MEDS ORDERED: CHOLECALCIFEROL (VIT D3) 400 UNIT TAB PO SCH (10:00)
--- NOTE | 2021-12-13 10:02 | Consultation ---
History of Present Illness - Reason for Consult Consult date: 12/13/21 COVID PUI Requesting physician: LARRY LAURA - History of Present Illness The patient is a 36-year-old female with tobacco abuse, bronchitis, hypertension admitted to the hospital with shortness of breath, fatigue, loss of smell. Found to have a pulse oximetry of 87% on room air. Chest x-ray revealed bilateral pneumonia. Afebrile. Labs showed leukocytosis. Patient admitted to the hospital as COVID-19 PUI. ID consulted for additional evaluation. Review of Systems: reviewed in the chart, unable to obtain, minimize risk of transmission Past History Past Medical History: hypertension, other (See HPI) Past Surgical History: No surgical history, Other (Reviewed) Social history: single, smoking. denies: alcohol abuse Family history: hypertension Medications and Allergies Allergies Allergy/AdvReac Type Severity Reaction Status Date / Time Sulfa (Sulfonamide Allergy Anaphylaxis Verified 12/12/21 14:37 Antibiotics) Active Meds: Active Medications Acetaminophen (Acetaminophen 325 Mg Tab) 650 mg PO Q4H PRN PRN Reason: Pain MILD(1-3)/Fever >100.5/BLACK Albuterol (Albuterol 2.5 Mg/3 Ml Nebu) 2.5 mg IH Q4HRT PRN PRN Reason: Shortness Of Breath Last Admin: 12/13/21 08:29 Dose: 2.5 mg Ascorbic Acid (Ascorbic Acid 500 Mg Tab) 500 mg PO BID [facility] Last Admin: 12/12/21 22:00 Dose: 500 mg Azithromycin (Azithromycin 250 Mg Tab) 500 mg PO QPM [facility] Stop: 12/16/21 18:59 Cholecalciferol (Cholecalciferol (Vit D3) 1000 Unit (25 Mcg) Tab) 1,000 unit PO QDAY [facility] Heparin Sodium (Porcine) (Heparin 5,000 Unit/1 Ml Vial) 5,000 unit SUB-Q Q12HR [facility] Last Admin: 12/12/21 22:00 Dose: 5,000 unit Hydralazine HCl (Hydralazine 20 Mg/1 Ml Inj) 10 mg IV Q6HR PRN PRN Reason: Elevated B/P Last Admin: 12/13/21 00:51 Dose: 10 mg Hydromorphone HCl (Hydromorphone 0.5 Mg/0.5 Ml Inj) 0.5 mg IV Q23H PRN PRN Reason: Pain , Severe (7-10) Ceftriaxone Sodium (Rocephin/Ns 2 Gm/100 Ml) 2 gm in 100 mls @ 200 mls/hr IV Q24H [facility]; Protocol Last Admin: 12/12/21 19:41 Dose: Not Given Calcium Gluconate 1,000 mg/ (Sodium Chloride) 110 mls @ 660 mls/hr IV ONCE ONE Stop: 12/13/21 10:05 Methylprednisolone Sodium Succinate (Methylprednisolone Sod Succinate 40 Mg/1 Ml Inj) 40 mg IV Q8HR [facility] Last Admin: 12/13/21 06:01 Dose: 40 mg Ondansetron HCl (Ondansetron 4 Mg/2 Ml Inj) 4 mg IV Q8H PRN PRN Reason: Nausea And Vomiting Oxycodone/Acetaminophen (Oxycodone /Acetaminophen 5-325mg Tab) 1 tab PO Q16H PRN PRN Reason: Pain, Moderate (4-6) Sodium Chloride (Sodium Chloride 0.9% 10 Ml Flush Syringe) 10 ml IV BID [facility] Last Admin: 12/12/21 22:17 Dose: 10 ml Sodium Chloride (Sodium Chloride 0.9% 10 Ml Flush Syringe) 10 ml IV PRN PRN PRN Reason: LINE FLUSH Zinc Sulfate (Zinc Sulfate 220 Mg Cap) 220 mg PO QDAY [facility] Last Admin: 12/12/21 22:00 Dose: 220 mg Physical Examination - Physical Exam Narrative exam: Physical Exam (reviewed in chart to minimize risk of transmission) Constitutional: deferred Head, Ears, Nose: deferred Eyes: deferred Neck: deferred Oral: deferred Cardiovascular: deferred Respiratory: deferred GI: deferred Musculoskeletal: deferred Skin: deferred Hem/Lymphatic: deferred Psych: deferred Neurological: deferred - Constitutional Vitals: Vital Signs Temp Pulse Resp BP Pulse Ox 97.6 F 120 H 24 157/96 98 12/13/21 04:24 12/13/21 08:29 12/13/21 08:29 12/13/21 04:24 12/13/21 08:29 Temperature -Last 24 Hours Temperature 97.6 F Temperature 98 F Temperature 98.3 F Temperature 98.2 F Results - Labs CBC & Chem 7: 12/13/21 06:37 12/13/21 06:37 Labs: Abnormal lab results 12/12/21 12/12/21 12/13/21 Range/Units 15:55 15:55 06:37 WBC 22.3 H 19.6 H (4.5-11.0) K/mm3 MCH 27 L (28-32) pg RDW 15.3 H 15.5 H (13.2-15.2) % Lymph % (Auto) 5.9 L (13.4-35.0) % Seg Neutrophils % 89.0 H (40.0-70.0) % Seg Neuts % (Manual) 96.0 H (40.0-70.0) % Lymphocytes % (Manual) 2.0 L (13.4-35.0) % Seg Neutrophils # 17.4 H (1.8-7.7) K/mm3 Seg Neutrophils # Man 21.4 H (1.8-7.7) K/mm3 Lymphocytes # (Manual) 0.4 L (1.2-5.4) K/mm3 Potassium (3.6-5.0) mmol/L Carbon Dioxide (22-30) mmol/L Glucose 105 H (65-100) mg/dL 12/13/21 Range/Units 06:37 WBC (4.5-11.0) K/mm3 MCH (28-32) pg RDW (13.2-15.2) % Lymph % (Auto) (13.4-35.0) % Seg Neutrophils % (40.0-70.0) % Seg Neuts % (Manual) (40.0-70.0) % Lymphocytes % (Manual) (13.4-35.0) % Seg Neutrophils # (1.8-7.7) K/mm3 Seg Neutrophils # Man (1.8-7.7) K/mm3 Lymphocytes # (Manual) (1.2-5.4) K/mm3 Potassium 5.5 H D (3.6-5.0) mmol/L Carbon Dioxide 20 L (22-30) mmol/L Glucose (65-100) mg/dL - Imaging and Cardiology Chest x-ray: report reviewed, image reviewed Assessment and Plan Cultures: SARS CoV2 PCR: Pending 12/12/2021 blood culture: In process A/P: 36-year-old female with tobacco abuse, bronchitis, hypertension admitted to the hospital with shortness of breath, fatigue, loss of smell. Found to have a pulse oximetry of 87% on room air: #Bilateral pneumonia: COVID-19 PCR is pending. Does have leukocytosis. Bibasilar opacities on CXR. #Acute hypoxic respiratory failure: Requiring nasal cannula oxygen. Recs: Continue empiric ceftriaxone, azithromycin If COVID-19 PCR comes back positive, start Decadron and remdesivir Lili Mcdonald MD, FACP, [facility] O: [phone] F: [phone] C: [phone]
[2021-12-13] MEDS ORDERED: CALC GLUCONATE 1GM/NS 100 ML 1 GM/100 ML BAG IV ONE (11:00)
[2021-12-13] MEDS: CHOLECALCIFEROL (VIT D3) 1000 UNIT (25 mcg) TAB PO SCH (11:20)
[2021-12-13] MEDS: ZINC SULFATE 220 MG CAP PO SCH (11:21)
[2021-12-13] MEDS: ASCORBIC ACID 500 MG TAB PO SCH ×2 (11:21→21:55)
[2021-12-13] MEDS: HEPARIN 5,000 UNIT/1 ML VIAL SUB-Q SCH ×2 (12:00→21:55)
[2021-12-13] MEDS: guaiFENesin DM 200/20 MG ORAL LIQD 10 ML PO PRN ×2 (15:20→22:19)
[2021-12-13] MEDS ORDERED: AZITHROMYCIN 250 MG TAB PO SCH (18:00)
[2021-12-13] MEDS: cefTRIAXone/NS 2 GM/100 ML 2 GM/100 ML BAG IV SCH (22:05)
[2021-12-13] MEDS: ACETAMINOPHEN 325 MG TAB PO PRN (22:16)
[2021-12-14] MEDS: methylPREDNISolone Sod Succinate 40 MG/1 ML INJ IV SCH (05:48)
[2021-12-14] MEDS: ACETAMINOPHEN 325 MG TAB PO PRN (07:01)
[2021-12-14] MEDS: ALBUTEROL 2.5 MG/3 ML NEBU IH PRN (08:20)
[2021-12-14] MEDS ORDERED: ALBUTEROL 2.5 MG/3 ML NEBU IH PRN (08:31)
[2021-12-14] MEDS: CHOLECALCIFEROL (VIT D3) 1000 UNIT (25 mcg) TAB PO SCH (09:13)
[2021-12-14] MEDS: ZINC SULFATE 220 MG CAP PO SCH (09:13)
[2021-12-14] MEDS: ASCORBIC ACID 500 MG TAB PO SCH (09:13)
[2021-12-14] MEDS: HEPARIN 5,000 UNIT/1 ML VIAL SUB-Q SCH (09:13)
[2021-12-14] MEDS: guaiFENesin DM 200/20 MG ORAL LIQD 10 ML PO PRN ×2 (09:17→12:49)
--- NOTE | 2021-12-14 09:31 | Progress Note ---
Assessment and Plan -- Sepsis; present on admission Sepsis protocol: Chest x-ray, CBC, CMP, blood culture, IV fluid resuscitation therapy, IV antibiotic therapy, maintain mean arterial pressure greater than or equal to 65, serial lactic acid level, --Pneumonia bilateral; community-acquired; POA Pneumonia protocol: Chest x-ray, CBC, CMP, supplemental oxygen, pulse oximetry, IV antibiotic therapy, pulmonary toilet. Follow cultures --Suspected COVID-19 virus infection/PUI, negative test Coronavirus protocol: Supplemental oxygen, pulse oximetry, nebulizer therapy, vitamin C therapy, vitamin D therapy, zinc therapy, IV antibiotic therapy, IV steroid therapy, prophylactic anticoagulation. --Accelerated hypertension Monitor blood pressure every shift, continue current antihypertensives As needed medications -- Acute respiratory failure with hypoxia/POA Chest x-ray, supplemental oxygen, pulse oximetry, noninvasive positive pressure ventilation as needed If patient is unable to maintain pulse oximetry will initiate high flow supplemental oxygen therapy Slowly wean as tolerated, home O2 evaluation prior to discharge --Full CODE STATUS; --DVT prophylaxis SCDs bilateral lower extremities while in bed, prophylactic anticoagulation --Advance care planning Disease education done, care plan discussed, diagnoses discussed, prognosis discussed, patient is full code. Patient knowledges understanding and agreement with care plan, +30 minutes. --Preventative health care Patient counseled regarding risk factor reduction, COVID-19 vaccination, outpatient follow-up with primary care physician for all age and risk factor appropriate screening test. +30 minutes. Disposition; follow clinically, follow consults evaluation recommendation Discharge when stable Subjective Date of service: 12/14/21 Interval history: I have seen and examined the patient at the bedside this morning Patient's chart and medications reviewed Patient is in mild shortness of breath Complains of generalized weakness Vital signs reviewed Objective - Exam Narrative Exam: General appearance: Present: mild distress, well-nourished, other - EENT Eyes: Present: PERRL (Mild shortness of breath), EOM intact - Neck Neck: Present: supple, normal ROM - Respiratory Respiratory effort: normal Respiratory: bilateral: diminished, rhonchi, negative: rales, wheezing - Cardiovascular Rhythm: regular Heart Sounds: Present: S1 & S2 - Extremities Extremities: no ischemia, No edema - Abdominal General gastrointestinal: soft, non-tender, non-distended, normal bowel sounds - Integumentary Integumentary: Present: clear, warm - Psychiatric Psychiatric: appropriate mood/affect, cooperative - Neurologic Neurologic: CNII-XII intact, moves all extremities - Constitutional Vitals: Vital Signs - 12hr 12/13/21 12/14/21 12/14/21 22:09 00:00 04:52 Temperature 98.1 F 98.3 F Pulse Rate 92 H 82 Pulse Rate [ Bilateral] Respiratory 20 20 Rate Respiratory Rate [Bilateral ] Blood Pressure 161/115 147/100 O2 Sat by Pulse 98 94 97 Oximetry 12/14/21 12/14/21 12/14/21 08:18 08:20 08:28 Temperature Pulse Rate Pulse Rate [ 94 H Bilateral] Respiratory Rate Respiratory 20 Rate [Bilateral ] Blood Pressure O2 Sat by Pulse 99 99 Oximetry - Labs CBC & Chem 7: 12/13/21 06:37 12/13/21 06:37 HEART Score - HEART Score Troponin: Troponin T < 0.010 ng/mL (0.00-0.029) 12/12/21 15:55
[2021-12-14 10:22] LABS: Hematocrit 40.1 % (30.3-42.9); Hemoglobin 12.8 gm/dl (10.1-14.3); Mean Corpuscular HGB Conc 32 % (30-34); Mean Corpuscular Volume 84 fl (79-97); Platelet Count 384 K/mm3 (140-440); Red Blood Count 4.76 M/mm3 (3.65-5.03); Red Cell Distribution Width 15.6 % (13.2-15.2)
[2021-12-14 10:38] LABS: Blood Urea Nitrogen 13 mg/dL (7-17); Hemolysis Index 0
[2021-12-14 10:43] LABS: BUN/Creatinine Ratio 19
--- NOTE | 2021-12-14 10:49 | Progress Note ---
Assessment and Plan Cultures: SARS CoV2 PCR: negative 12/12/2021 blood culture: no growth A/P: 36-year-old female with tobacco abuse, bronchitis, hypertension admitted to the hospital with shortness of breath, fatigue, loss of smell. Found to have a pulse oximetry of 87% on room air: #Bilateral pneumonia: COVID-19 PCR is negative. Does have leukocytosis. Bibasilar opacities on CXR. #Acute hypoxic respiratory failure: Requiring nasal cannula oxygen. Recs: -Continue empiric ceftriaxone, azithromycin x 5 days -COVID negative -ongoing leucocytosis also from steroids Will sign off. Please call with questions. Lili Mcdonald MD, FACP, [facility] O: [phone] F: [phone] C: [phone] Subjective Date of service: 12/14/21 Interval history: Afebrile. Lying in bed. Denies any new complaints. Cough present with whitish sputum production. Tested negative for COVID-19. Objective - Exam Narrative Exam: Physical Exam: Constitutional: Alert, cooperative. No acute distress Head, Ears, Nose: Normocephalic, atraumatic. External ears, nose normal Eyes: Conjunctivae/corneas clear. No icterus. No ptosis. Neck: Supple, no meningeal signs Cardiovascular: S1, S2 + Respiratory: b/l rhonchi GI: Soft, non-tender; bowel sounds normal. No peritoneal signs Musculoskeletal: No pedal edema, no cyanosis. Skin: No rash or abscess Hem/Lymphatic: No palpable cervical or supraclavicular nodes. No lymphangitis Psych: Mood ok. Affect normal Neurological: Awake, alert, oriented. No gross abnormality - Constitutional Vitals: Vital Signs Temp Pulse Resp BP Pulse Ox 98.3 F 94 H 20 147/100 98 12/14/21 04:52 12/14/21 08:20 12/14/21 08:20 12/14/21 04:52 12/14/21 10:27 Temperature -Last 24 Hours Temperature 98.3 F Temperature 98.1 F - Labs CBC & Chem 7: 12/14/21 09:48 12/14/21 09:48 Labs: Abnormal lab results 12/14/21 12/14/21 Range/Units 09:48 09:48 WBC 22.8 H (4.5-11.0) K/mm3 MCH 27 L (28-32) pg RDW 15.6 H (13.2-15.2) % Glucose 151 H (65-100) mg/dL
--- NOTE | 2021-12-14 12:25 | Discharge Summary ---
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 Found to have a pulse oximetry of 87% on room air. Chest x-ray revealed bilateral pneumonia. Afebrile. Labs showed leukocytosis. Patient admitted to the hospital as COVID-19 PUI. COVID test was negative. ID recommended to continue treatment for community-acquired pneumonia. Initially patient noted to have hyperkalemia and that was resolved. Patient was then discharged home in stable condition with outpatient follow-up. Final Discharge Diagnosis (Prints w/discharge instructions): -- Bilateral pneumonia, community-acquired. -- Acute hypoxic respiratory failure due to pneumonia. -- SIRS, present on admission due to PNA. -- Tobacco abuse. Counseled. --Hyperkalemia, resolved Time spent for discharge: 34 minutes Core Measure Documentation - Palliative Care Palliative Care/ Comfort Measures: Not Applicable - Core Measures Any of the following diagnoses?: none Exam - Physical Exam Narrative exam: GENERAL: well-developed and well-nourished lying on bed appeared to be in no discomfort. HEENT: Normocephalic. Atraumatic. No conjunctival congestion or icterus. Patient has moist mucous membranes. NECK: Supple. Trachea midline. CHEST/LUNGS: Clear to auscultated bilaterally, breathing nonlabored. No wheezes crackles or rhonchi. HEART/CARDIOVASCULAR: Regular in rate and rhythm. S1 and S2 positive. ABDOMEN: Abdomen is soft, nontender. Patient has normal bowel sounds. SKIN: There is no rash. Warm and dry. NEURO: No focal motor deficit. Follows command. MUSCULOSKELETAL: No joint effusion or tenderness. EXTRIMITY: No edema, no cyanosis or clubbing. PSYCH: Cooperative. - Constitutional Vitals: Temp Pulse Resp BP Pulse Ox 98.3 F 94 H 20 147/100 98 12/14/21 04:52 12/14/21 08:20 12/14/21 08:20 12/14/21 04:52 12/14/21 10:27 Plan Activity: advance as tolerated Weight Bearing Status: Weight Bear as Tolerated Diet: low fat, low salt Follow up with: PRIMARY MD RACHAEL [Primary Care Provider] - 7 Days LUIS MURPHY MD [Staff Physician] - 7 Days Prescriptions: levoFLOXacin [Levaquin] 750 mg PO QDAY #4 tablet guaiFENesin ER [Mucinex ER] 600 mg PO Q12H #14 Albuterol Mdi (or & Nicu Only) [ProAir HFA Inhaler] 1 puff IH Q6H PRN #8.5 gram PRN Reason: Shortness Of Breath
[2021-12-14 12:27] VITALS: BP 127/90
[2021-12-14] MEDS ORDERED: IPRATROPIUM/ALBUTEROL SULFATE 3 ML AMPUL.NEB IH SCH (14:00)
[2021-12-14] MEDS ORDERED: BUDESONIDE 0.5 MG/2 ML NEBU IH SCH (20:00)
[2021-12-14] MEDS ORDERED: ARFORMOTEROL 15 MCG/2 ML NEBU IH SCH (20:00)
== END 2021-12-14 15:00 | disposition home or self-care (01) | DRG 871 ==
LOC: ED 14:21 → 3A 18:10
PROVIDERS: ADMIT Internal Medicine; ATTEND Internal Medicine
DX: A41.9 Sepsis, unspecified organism (principal); J18.9 Pneumonia, unspecified organism; J96.01 Acute respiratory failure with hypoxia; J44.0 Chronic obstructive pulmonary disease with (acute) lower respiratory infection; Z20.822 Contact with and (suspected) exposure to COVID-19; I10 Essential (primary) hypertension; F17.200 Nicotine dependence, unspecified, uncomplicated; I16.0 Hypertensive urgency; Z71.6 Tobacco abuse counseling; E87.5 Hyperkalemia; Z82.49 Family history of ischemic heart disease and other diseases of the circulatory system
CPT/HCPCS: 36415; 71045; 80048; 80053; 82140; 83735; 84484; 84702; 85007; 85025; 85027; 85610; 85730; 86850; 86900; 86901; 87040; 93005; 94640; 94644; 94760; G0378; J0360; J0456; J0610; J0696; J1644; J2920; J3475; J7030; U0003